=== PATIENT | female | born 1990 | race Caucasian/White ===

== ENCOUNTER 2021-09-13 14:29 | Emergency (ER) | payer MEDICAID ==
[~2021-09-13] VITALS: Ht 157.5 cm; Wt 89.0 kg
[2021-09-13] MEDS ORDERED: PREDNISONE 20MG TABLET PO ONE (15:30)
[2021-09-13] MEDS ORDERED: ALBUTEROL (0.083%) 2.5MG/3ML NEB HHN ONE (15:30)
[2021-09-13] MEDS ORDERED: FLOV44 INH (15:35)
[2021-09-13] MEDS ORDERED: ALBU90AE INH (15:35)
[2021-09-13] MEDS ORDERED: ALBU18HF2 IH (15:35)
[2021-09-13 17:28] VITALS: BP 119/89
== END 2021-09-13 17:29 | disposition home or self-care (01) ==
LOC: ER 14:29
DX: J45.901 Unspecified asthma with (acute) exacerbation (principal)
CPT/HCPCS: 94640; 99283; J7512; Z7610